=== PATIENT | female | born 1970 | race Caucasian/White ===

== ENCOUNTER 2021-05-01 13:41 | Outpatient (REF) | payer OTHER, SELFPAY | END 2021-05-01 13:42 | disposition home or self-care (01) | LOC: HO.BBR 13:41 | PROVIDERS: Visit Provider Internal Medicine Hematology & Oncology | DX: Z13.89 Encounter for screening for other disorder (principal) ==

== ENCOUNTER 2021-05-30 12:52 | Outpatient (REF) | payer OTHER, SELFPAY | END 2021-05-30 12:53 | disposition home or self-care (01) | LOC: HO.BBR 12:52 | PROVIDERS: Visit Provider Internal Medicine Hematology & Oncology | DX: Z13.89 Encounter for screening for other disorder (principal) ==

== ENCOUNTER 2021-07-04 12:56 | Outpatient (REF) | payer OTHER, SELFPAY | END 2021-07-04 12:57 | disposition home or self-care (01) | LOC: HO.BBR 12:56 | PROVIDERS: Visit Provider Internal Medicine Hematology & Oncology | DX: Z13.89 Encounter for screening for other disorder (principal) ==

== ENCOUNTER 2021-07-04 14:04 | Outpatient (REF) | payer OTHER, SELFPAY | END 2021-07-04 14:05 | disposition home or self-care (01) | LOC: HO.LNP 14:04 | PROVIDERS: Visit Provider Internal Medicine Gastroenterology | DX: Z13.89 Encounter for screening for other disorder (principal) ==

== ENCOUNTER 2021-07-04 14:09 | Outpatient (REF) | payer OTHER, SELFPAY | END 2021-07-04 14:10 | disposition home or self-care (01) | LOC: HO.LNP 14:09 | PROVIDERS: Visit Provider Internal Medicine Gastroenterology | DX: Z13.89 Encounter for screening for other disorder (principal) | CPT/HCPCS: 83013 ==

== ENCOUNTER 2021-08-01 13:18 | Outpatient (REF) | payer OTHER, SELFPAY | END 2021-08-01 13:19 | disposition home or self-care (01) | LOC: HO.BBR 13:18 | PROVIDERS: Visit Provider Internal Medicine Hematology & Oncology | DX: Z13.89 Encounter for screening for other disorder (principal) ==

== ENCOUNTER 2021-09-05 12:56 | Outpatient (REF) | payer OTHER, SELFPAY | END 2021-09-05 12:57 | disposition home or self-care (01) | LOC: HO.BBR 12:56 | PROVIDERS: Visit Provider Internal Medicine Hematology & Oncology | DX: Z13.89 Encounter for screening for other disorder (principal) ==

== ENCOUNTER 2021-10-03 12:51 | Outpatient (REF) | payer OTHER, SELFPAY | END 2021-10-03 12:52 | disposition home or self-care (01) | LOC: HO.BBR 12:51 | PROVIDERS: Visit Provider Internal Medicine Hematology & Oncology | DX: Z13.89 Encounter for screening for other disorder (principal) ==

== ENCOUNTER 2021-10-31 12:48 | Outpatient (REF) | payer OTHER, SELFPAY | END 2021-10-31 12:49 | disposition home or self-care (01) | LOC: HO.BBR 12:48 | PROVIDERS: Visit Provider Internal Medicine Hematology & Oncology | DX: Z13.89 Encounter for screening for other disorder (principal) ==

== ENCOUNTER 2021-11-28 12:44 | Outpatient (REF) | payer OTHER, SELFPAY | END 2021-11-28 12:45 | disposition home or self-care (01) | LOC: HO.BBR 12:44 | PROVIDERS: Visit Provider Hospitalist | DX: Z13.89 Encounter for screening for other disorder (principal) ==

== ENCOUNTER 2022-01-09 12:47 | Outpatient (REF) | payer OTHER, SELFPAY | END 2022-01-09 12:48 | disposition home or self-care (01) | LOC: HO.BBR 12:47 | PROVIDERS: Visit Provider Hospitalist | DX: Z13.89 Encounter for screening for other disorder (principal) ==

== ENCOUNTER 2022-03-07 12:33 | Outpatient (REF) | payer OTHER, SELFPAY | END 2022-03-07 12:34 | disposition home or self-care (01) | LOC: HO.BBR 12:33 | PROVIDERS: Visit Provider Hospitalist | DX: Z13.89 Encounter for screening for other disorder (principal) ==

== ENCOUNTER 2022-05-08 12:33 | Outpatient (REF) | payer OTHER, SELFPAY | END 2022-05-08 12:34 | disposition home or self-care (01) | LOC: HO.BBR 12:33 | PROVIDERS: Visit Provider Hospitalist | DX: Z13.89 Encounter for screening for other disorder (principal) ==

== ENCOUNTER 2022-07-03 12:36 | Outpatient (REF) | payer OTHER, SELFPAY | END 2022-07-03 12:37 | disposition home or self-care (01) | LOC: HO.BBR 12:36 | PROVIDERS: Visit Provider Hospitalist | DX: Z13.89 Encounter for screening for other disorder (principal) ==

== ENCOUNTER 2022-09-04 12:25 | Outpatient (REF) | payer OTHER, SELFPAY | END 2022-09-04 12:26 | disposition home or self-care (01) | LOC: HO.BBR 12:25 | PROVIDERS: Visit Provider Hospitalist | DX: Z13.89 Encounter for screening for other disorder (principal) ==

== ENCOUNTER 2022-10-31 12:29 | Outpatient (REF) | payer OTHER, SELFPAY | END 2022-10-31 12:30 | disposition home or self-care (01) | LOC: HO.BBR 12:29 | PROVIDERS: Visit Provider Hospitalist | DX: Z13.89 Encounter for screening for other disorder (principal) ==

== ENCOUNTER 2024-11-25 12:54 | Outpatient (REF) | payer OTHER, SELFPAY | END 2024-11-25 12:55 | disposition home or self-care (01) | LOC: HO.BBR 12:54 | PROVIDERS: Visit Provider Hospitalist | DX: Z13.89 Encounter for screening for other disorder (principal) ==